=== PATIENT | female | born 1970 | race Hispanic/Latino ===

== ENCOUNTER → 2019-10-20 | Day surgery (SDC) | payer OTHER ==
[~2019-10-20] MED LIST: AMLODIPINE BESY10 MG PO; CLONIDINE HCL0.2 MG PO; FENTANYL CITRATE/PF 100MCG/2 ML INJ ONE; GLIPIZIDE-METF1 EAC2 PO; HYDROCHLOROTHIA25 MG PO; JANUVIA100 MG PO; LANTUS 3ML100 UNITS/ SQ; LEVOTHYROXINE88 MCG PO; LISINOPRIL40 MG PO; METOPROLOL TART50 MG PO; MIDAZOLAM HCL 2 MG/2 ML VIAL ONE; OR PHACO EYE KIT ONE; PREOP PHACO EYE KIT ONE; VENLAFAXINE HCL75 MG PO
[2019-10-20 13:10] VITALS: BP 135/87
--- NOTE | 2019-10-23 09:33 | Operative Report ---
DATE OF PROCEDURE: 10/20/2019 SURGEON: Redd Rogers MD PREOPERATIVE DIAGNOSIS: Dense white cataract, right eye. POSTOPERATIVE DIAGNOSIS: Dense white cataract, right eye. PROCEDURE: Complicated phacoemulsification with posterior chamber intraocular lens. ANESTHESIA: MAC. COMPLICATIONS: None. LENS: Reji SN60WF 23.0 diopter lens. DESCRIPTION OF PROCEDURE: The patient was taken to the operating room with a tetracaine 0.5% drops placed in the right eye. The patient's eye was prepped and draped in usual sterile ophthalmic fashion. A lid speculum was placed in the right eye and a sideport incision was made. A 0.2 mL of 1% lidocaine preservative-free was injected in the anterior chamber. An air bubble was injected in the anterior chamber and trypan blue dye was injected also. BSS solution was used to irrigate the excess dye out of the eye. Viscoelastic was placed in the anterior chamber and a keratome was used to make a temporal clear corneal incision. The cystotome and Utrata forceps were used to create an anterior capsulorrhexis without any complications. Hydrodissection and hydrodelineation were then performed. The phacoemulsification probe was placed in the eye. The nucleus was phacoemulsified using a divide and conquer technique. Irrigation/aspiration handpiece was then used to remove any residual cortical material. Viscoelastic was placed in the capsular bag. An Reji SN60WF lens placed in the bag without any complications. Irrigation/aspiration handpiece was used to remove any residual viscoelastic material from the eye. Miostat was injected in the anterior chamber and the wound was checked to make sure there was no evidence of leakage. Two drops of Vigamox were placed in the eye. Once this done, the patient had Maxitrol ointment, patch and Cleary shield placed in the eye. The patient tolerated the procedure well and taken to the recovery room in good condition. The patient will be seen in my office tomorrow. Redd Rogers MD SES/MODL /[id number]
== END | disposition home or self-care (01) ==
LOC: OR 09:08
PROVIDERS: ATTEND Ophthalmology
DX: E11.36 Type 2 diabetes mellitus with diabetic cataract (principal); H25.11 Age-related nuclear cataract, right eye; E11.65 Type 2 diabetes mellitus with hyperglycemia; R00.1 Bradycardia, unspecified; E03.9 Hypothyroidism, unspecified; F41.9 Anxiety disorder, unspecified; I10 Essential (primary) hypertension; M06.9 Rheumatoid arthritis, unspecified; E66.01 Morbid (severe) obesity due to excess calories; J30.89 Other allergic rhinitis; F32.9 Major depressive disorder, single episode, unspecified; F17.200 Nicotine dependence, unspecified, uncomplicated; Z88.8 Allergy status to other drugs, medicaments and biological substances; Z01.812 Encounter for preprocedural laboratory examination; Z11.59 Encounter for screening for other viral diseases; Z79.84 Long term (current) use of oral hypoglycemic drugs; Z79.4 Long term (current) use of insulin; Z68.42 Body mass index [BMI] 45.0-49.9, adult; Z90.5 Acquired absence of kidney
CPT/HCPCS: 36415; 66982; 81025; 82948; J2250; J3010; U0002; V2632

== ENCOUNTER → 2019-11-03 | Day surgery (SDC) | payer OTHER ==
[2019-11-03 11:48] VITALS: BP 157/91
== END | disposition home or self-care (01) ==
LOC: OR 08:25
PROVIDERS: ATTEND Ophthalmology
DX: H25.12 Age-related nuclear cataract, left eye (principal); E11.9 Type 2 diabetes mellitus without complications; I10 Essential (primary) hypertension; F41.9 Anxiety disorder, unspecified; Z88.8 Allergy status to other drugs, medicaments and biological substances; Z01.812 Encounter for preprocedural laboratory examination; Z11.59 Encounter for screening for other viral diseases; Z79.4 Long term (current) use of insulin
CPT/HCPCS: 36415; 66984; 81025; 82948; J2250; J3010; U0002; V2632

== ENCOUNTER 2021-05-11 13:11 | Emergency (ER) | payer OTHER ==
[~2021-05-11] VITALS: Ht 154.9 cm; Wt 115.2 kg
[~2021-05-11 13:11] MED LIST changes: -FENTANYL CITRATE/PF 100MCG/2 ML INJ ONE; -MIDAZOLAM HCL 2 MG/2 ML VIAL ONE; -OR PHACO EYE KIT ONE; -PREOP PHACO EYE KIT ONE
[2021-05-11] MEDS ORDERED: IBUPROFEN 600 MG TAB PO STA (14:17)
[2021-05-11] MEDS ORDERED: IBUPROFEN 600 MG TAB ONE (14:46)
[2021-05-11] MEDS ORDERED: ACETAMINOPHEN-1 EAC3 PO (16:03)
== END 2021-05-11 16:24 | disposition home or self-care (01) ==
LOC: FSED 14:16
DX: S82.54XA Nondisplaced fracture of medial malleolus of right tibia, initial encounter for closed fracture (principal); S52.591A Other fractures of lower end of right radius, initial encounter for closed fracture; V43.62XA Car passenger injured in collision with other type car in traffic accident, initial encounter; Y92.488 Other paved roadways as the place of occurrence of the external cause; I10 Essential (primary) hypertension; E11.9 Type 2 diabetes mellitus without complications
CPT/HCPCS: 99283